=== PATIENT | female | born 1960 | race Caucasian/White ===

== ENCOUNTER 2018-09-15 08:33 | Outpatient (RCR) | payer BC, SELFPAY ==
[2018-09-15 13:45] LABS: HGB 12.8 g/dL (12.0-15.5)
[2018-09-15 14:02] LABS: Ferritin 289 ng/mL (8-388)
== END 2018-09-25 23:59 | disposition home or self-care (01) ==
LOC: INF 08:33
PROVIDERS: Naturopath; PCP Nurse Practitioner Gerontology; Visit Provider Internal Medicine
DX: R77.8 Other specified abnormalities of plasma proteins (principal)
CPT/HCPCS: 36415; 99195; 82728; 85014; 85018

== ENCOUNTER 2018-12-15 02:40 | Outpatient (RCR) | payer BC, SELFPAY ==
[2018-12-15 14:09] LABS: HCT 37.1 % (36.0-46.0); HGB 12.7 g/dL (12.0-15.5)
[2018-12-15 14:40] LABS: Ferritin 248 ng/mL (8-388)
== END 2018-12-26 23:59 | disposition home or self-care (01) ==
LOC: INF 02:40
PROVIDERS: PCP Family Medicine; Visit Provider Internal Medicine
DX: R77.8 Other specified abnormalities of plasma proteins (principal)
CPT/HCPCS: 36415; 99195; 82728; 85014; 85018

== ENCOUNTER 2019-03-16 01:43 | Outpatient (RCR) | payer BC, SELFPAY | END 2019-03-28 23:59 | disposition home or self-care (01) | LOC: INF 01:43 | PROVIDERS: PCP Family Medicine; Visit Provider Internal Medicine | DX: R69 Illness, unspecified (principal) ==